=== PATIENT | female | born 1970 | race Caucasian/White ===

== ENCOUNTER 2018-08-19 12:10 | Emergency (ER) | payer OTHER ==
[~2018-08-19] VITALS: Ht 152.4 cm; Wt 75.3 kg
[2018-08-19] MEDS ORDERED: PROTONIX40 M1 (12:23)
[2018-08-19] MEDS ORDERED: ATACAND16 MG (12:23)
[2018-08-19] MEDS ORDERED: NORFLEX (12:24)
== END 2018-08-19 13:32 | disposition home or self-care (01) ==
LOC: ER 12:10
DX: M75.52 Bursitis of left shoulder (principal)